=== PATIENT | male | born 1970 | race Caucasian/White ===

== ENCOUNTER 2022-08-14 12:26 | Outpatient (CLI) | payer OTHER ==
[2022-08-14 13:37] LABS: #Basophils 0.1 10x3/uL (0.0-0.2); #Eosinphils 0.2 10x3/uL (0.0-0.5); #Monocytes 0.5 10x3/uL (0.0-1.1); #Neutrophils 6.4 10x3/uL (1.5-8.4); %Basophils 1.1 % (0.0-2.0); %Eosinophils 2.5 % (0.0-6.0); %Monocytes 5.3 % (0.0-10.0); %Neutrophils 70.8 % (40.0-75.0); Hemoglobin 18.3 g/dL (13.5-17.5); Mean Corpuscular HGB CONC 34.3 g/dL (32.0-36.0); Mean Corpuscular Hemoglobin 32.1 pg (27.0-33.0); Mean Corpuscular Volume 93.5 fl (81.2-95.1); Mean Platelet Volume 9.3 fl (7.4-10.4); Platelet Count 181 10x3/uL (150-450); RBC Distribution Width 11.7 % (11.5-14.5)
[2022-08-14 13:47] LABS: Anion Gap 13 mmol/L (10-20); BUN (Urea Nitrogen) 7 mg/dL (8.4-25.7); Calc. Creatinine Clearance 0 mL/min (70-130); Calcium 9.3 mg/dL (7.8-10.44); Carbon Dioxide 26 mmol/L (22-29); Chloride 104 mmol/L (98-107); Estimated GFR 84; Glucose 94 mg/dL (70-105); Potassium 4.4 mmol/L (3.5-5.1); Sodium 139 mmol/L (136-145)
== END 2022-08-14 12:27 | disposition home or self-care (01) ==
LOC: LABBT 12:26
PROVIDERS: ATTEND Specialist
DX: Z01.818 Encounter for other preprocedural examination (principal); K40.90 Unilateral inguinal hernia, without obstruction or gangrene, not specified as recurrent; K43.9 Ventral hernia without obstruction or gangrene
CPT/HCPCS: 80048; 85025; 93005; 93010

== ENCOUNTER 2022-08-18 06:08 | Day surgery (SDC) | payer OTHER ==
[2022-08-16 12:28] VITALS: BMI 28.2
[2022-08-18] MEDS ORDERED: Bupivacaine HCl 0.5%/Epinephrine 1:200,000/PF 30 ml Vial ONE (06:43)
[2022-08-18] MEDS ORDERED: Ketorolac Tromethamine 30 MG/ML VIAL ONE (07:35)
[2022-08-18] MEDS ORDERED: Gabapentin 300 MG CAP ONE (07:35)
[2022-08-18] MEDS ORDERED: Acetaminophen 500 MG TAB ONE (07:35)
[2022-08-18] MEDS ORDERED: HYDROmorphone 0.5 MG/0.5 ML SYRINGE ONE (15:24)
[2022-08-18] MEDS ORDERED: fentaNYL PF 100 MCG/2 ML SYRINGE ONE ×2 (15:24→18:14)
[2022-08-18] MEDS ORDERED: Sodium Chloride 0.9% 100 ML ONE (15:46)
[2022-08-18] MEDS ORDERED: CEFAZOLIN 2 GM VIAL ONE (15:46)
[2022-08-18] MEDS ORDERED: Dexamethasone 20 MG/5 ML VIAL ONE (15:51)
[2022-08-18] MEDS ORDERED: PROPOFOL 200 MG/20 ML VIAL ONE (15:51)
[2022-08-18] MEDS ORDERED: Ondansetron PF 4 MG/2 ML Vial ONE (15:51)
[2022-08-18] MEDS ORDERED: Rocuronium Bromide 10 MG/ML (10ML VIAL) ONE (15:51)
[2022-08-18] MEDS ORDERED: Lidocaine 1% PF 5 ML VIAL ONE (15:51)
== END 2022-08-18 19:40 | disposition home or self-care (01) ==
LOC: SDC 06:08
PROVIDERS: ATTEND Specialist
PROC: 0YU54JZ Supplement Right Inguinal Region with Synthetic Substitute, Percutaneous Endoscopic Approach (ICD-10-PCS; principal; 2022-08-18)
PROC: 8E0W4CZ Robotic Assisted Procedure of Trunk Region, Percutaneous Endoscopic Approach (ICD-10-PCS; principal; 2022-08-18)
DX: K40.90 Unilateral inguinal hernia, without obstruction or gangrene, not specified as recurrent (principal); D17.6 Benign lipomatous neoplasm of spermatic cord; F17.210 Nicotine dependence, cigarettes, uncomplicated; Z86.16 Personal history of COVID-19
CPT/HCPCS: 88302; C1781; J1100; J1170; J1885; J2405; J2704; J3490